=== PATIENT | female | born 1990 | race Caucasian/White ===

== ENCOUNTER 2017-02-03 11:49 | Emergency (ER) | payer SELFPAY ==
[~2017-02-03] VITALS: Ht 165.1 cm; Wt 59.0 kg
[2017-02-03 11:55] VITALS: BP 114/82
--- NOTE | 2017-02-03 12:00 | NUR ---
Patient BIB [place] [employer] to be evaluated as pre-book, transferred to bed 5. [employer] evaluating patient at bedside.
--- NOTE | 2017-02-03 12:00 | NUR ---
Patient placed in bed 5.
--- NOTE | 2017-02-03 12:02 | NUR ---
26/F [facility] for evaluation of left thumb needle stick. Pt states "I was stuck with a needle the day I was arrested." Per officer patient was arrest on 02/01/17. Patient denies pain. Denies N/V/D. Left thumb has redness, mild swelling, no drainage noted. Pt was brought from prison as a prebook/medical clearance. Pt denies any medical hx. AOX4. VSS.
--- NOTE | 2017-02-03 12:13 | NUR ---
Patient being evaluated by physician at bedside.
--- NOTE | 2017-02-03 13:07 | NUR ---
Patient appears to be resting comfortably in bed. Vital Signs within normal limits. Respirations even and unlabored.
--- NOTE | 2017-02-03 14:31 | NUR ---
lead pharmacy technician at bedside.
[2017-02-03 15:08] VITALS: BP 101/56
--- NOTE | 2017-02-03 15:09 | NUR ---
Patient discharged with v/s stable. Written and verbal after care instructions given and explained. Patient alert, oriented and verbalized understanding of instructions. Police with in custody. All questions addressed prior to discharge. ID band removed. Patient advised to follow up with PMD. Rx of KEFLEX given. Patient educated on indication of medication including possible reaction and side effects. Opportunity to ask questions provided and answered.
== END 2017-02-03 15:07 ==
LOC: MED 11:49
DX: L08.9 Local infection of the skin and subcutaneous tissue, unspecified (principal)